=== PATIENT | female | born 1935 | race Caucasian/White ===

== ENCOUNTER 2023-12-24 14:03 | Emergency (ER) | payer BC, MEDICARE ==
[~2023-12-24] VITALS: Ht 160 cm; Wt 55.3 kg
[2023-12-24] MEDS: glucagon, human recombinant 1mg kit IV ONE ×2 (15:53→17:23)
[2023-12-24] MEDS: albuterol 2.5 MG/3 ML nebule NEB ONE (19:46)
[2023-12-24 19:47] VITALS: PULSE 69; RESP 18; O2SAT 93
[2023-12-24 19:50] VITALS: PULSE 75; RESP 16; O2SAT 95
[2023-12-24 20:10] VITALS: BP 171/82; PULSE 72; RESP 16; TEMP 99; O2SAT 94
== END 2023-12-24 19:57 | disposition home or self-care (01) ==
LOC: ER 14:04
DX: T17.2 Foreign body in pharynx (principal); R13.10 Dysphagia, unspecified; W44.8 Other foreign body entering into or through a natural orifice
CPT/HCPCS: 94640; 96374; 99285; J1610